=== PATIENT | male | born 1945 | race Caucasian/White ===

== ENCOUNTER → 2022-04-29 13:06 | Outpatient (CLI) | payer MEDICARE, SELFPAY ==
--- NOTE | 2022-04-29 13:08 | DI.RAD.S_ITS ---
PROCEDURE: XR FINGER RT MIN 2V INDICATIONS: dislocated or broke? TECHNIQUE: AP hand, 2 views of the 4th finger(s) acquired. COMPARISON: None. FINDINGS: Bones: Posterior dislocation of the 4th digit PIP joint. No conspicuous fracture. No suspicious bony lesions. Soft tissues: No suspicious soft tissue calcifications. IMPRESSION: Posterior dislocation of the 4th digit PIP joint. Dictated by: Jam Yusuf M.D. on 04/29/2022 at 13:39 Approved by: Jam Yusuf M.D. on 04/29/2022 at 13:41
== END ==
PROVIDERS: Referring Provider Nurse Practitioner Critical Care Medicine; Visit Provider Nurse Practitioner Critical Care Medicine
DX: S63.284A Dislocation of proximal interphalangeal joint of right ring finger, initial encounter (principal); W19.XXXA Unspecified fall, initial encounter
CPT/HCPCS: 73140